=== PATIENT | female | born 1940 | race Caucasian/White ===

== ENCOUNTER → 2016-10-29 | Outpatient (CLI) | payer BC ==
--- NOTE | 2016-10-29 10:47 | DIAGNOSTIC IMAGING REPORT ---
MRI LEFT KNEE NO CONTRAST CLINICAL HISTORY: LEFT KNEE PAIN COMPARISON STUDY: January 2007 FINDINGS: Imaging was performed in sagittal, coronal, and axial planes. There is marrow edema involving the medial tibial plateau likely on a degenerative basis. The quadriceps and patellar tendons appear intact. The anterior posterior cruciate ligaments appear intact. The medial and lateral collateral ligaments appear intact. The patellar retinacular structures appear intact. There is marked chondrosis involving the medial joint compartment. There is medial extrusion of the medial meniscus. There are medial joint compartment osteophytes. There is fraying involving the undersurface of the medial meniscus. No tears of the lateral meniscus are visualized. There are degenerative changes within the patellofemoral joint. IMPRESSION: 1. Marked degenerative changes involving the medial joint compartment with chondrosis, degenerative marrow edema involving the medial tibial plateau, medial extrusion of the medial meniscus with undersurface fraying. 2. No evidence of cruciate or collateral ligament disruption. Electronically signed by: Bolivar Malone M.D. 10/29/2016 10:46 AM Dictated Date/Time: 10/29/2016 10:40 AM
== END | disposition home or self-care (01) ==
LOC: C.MRIBC 08:53
PROVIDERS: ATTEND Internal Medicine Geriatric Medicine
DX: M25.562 Pain in left knee (principal)

== ENCOUNTER → 2017-02-08 | Outpatient (CLI) | payer BC ==
--- NOTE | 2017-02-15 06:46 | CODING QUERY MEDICAL NECESSITY ---
SUPPORTING DIAGNOSIS NEEDED Dr. Gore, A supporting diagnosis is required for the test/procedure performed on this patient in order for us to be reimbursed by the patient's insurance. Please provide a supporting diagnosis for the following test/procedure listed below next to the test name along with your signature. *If there is no additional diagnosis for this patient that would support the following test/procedure please document that below next to the test/procedure. Test(s)/Procedure(s) that require a supporting diagnosis: * ([id number]) DXA BONE DENSITY, AXIAL DIAGNOSIS: DATE OF SERVICE: 02/08/17 Provider Signature: Date: Thank you Kenneth Jo [facility] Information Management Once completed, please kindly fax back to [phone] For questions please call [phone]
== END | disposition home or self-care (01) ==
LOC: C.MAMM 10:38
PROVIDERS: ATTEND Internal Medicine Geriatric Medicine
DX: Z00.00 Encounter for general adult medical examination without abnormal findings (principal); M40.03 Postural kyphosis, cervicothoracic region

== ENCOUNTER → 2017-04-04 | Outpatient (CLI) | payer BC ==
--- NOTE | 2017-04-04 16:07 | MAMMOGRAPHY REPORT ---
BILATERAL DIGITAL SCREENING MAMMOGRAM WITH CAD: 04/04/2017 CLINICAL HISTORY: Routine screening. Patient has no complaints. TECHNIQUE: Bilateral CC and MLO views were obtained. Current study was also evaluated with a Compute r Aided Detection (CAD) system. COMPARISON: Comparison is made to exams dated: 03/31/2016 mammogram, 03/28/2015 mammogram, 03/27/2014 mamm ogram, 03/26/2013 mammogram, 03/23/2012 mammogram, and 03/23/2011 mammogram - [facility] BREAST COMPOSITION: There are scattered areas of fibroglandular density in both breasts. FINDINGS: There is fluctuating nodularity bilaterally, most likely representing fluctuating cysts. T here are mild vascular calcifications and scattered benign-appearing microcalcifications in the breas ts. No suspicious spiculated or irregular mass, architectural distortion or cluster of new, suspicio us microcalcifications is seen. IMPRESSION: ACR BI-RADS CATEGORY 1: NEGATIVE There is no mammographic evidence of malignancy. A 1 year screening mammogram is recommended. The pa tient will receive written notification of the results. Approximately 10% of breast cancers are not detected with mammography. A negative mammographic report should not delay biopsy if a clinically suggestive mass is present. Kaye Michelle M.D. ay/:04/04/2017 14:51:38 Nursing Informatics Specialist: Veronica PATTON(Hugh)(M), [facility] letter sent: Normal 1/2 BI-RADS Code: ACR BI-RADS Category 1: Negative
== END | disposition home or self-care (01) ==
LOC: C.MAMM 11:35
PROVIDERS: ATTEND Specialist
DX: Z12.31 Encounter for screening mammogram for malignant neoplasm of breast (principal)

== ENCOUNTER → 2017-07-18 | Outpatient (CLI) | payer BC ==
[2017-07-18 12:29] LABS: BASO % 0.2 %; BASO ABS # 0.01 K/uL (0-0.2); COMPLETE YES; EOS % 2.4 %; HEMATOCRIT 42.6 % (37-47); LYMPH % 41.4 %; LYMPH ABS # 1.89 K/uL (1.2-3.4); MEAN CELL VOLUME 93.2 fL (80-100); MEAN CORPUSCULAR HEMOGLOBIN 31.1 pg (25-34); MEAN CORPUSCULAR HGB CONC 33.3 g/dl (32-36); MEAN PLATELET VOLUME 11.4 fL (7.4-10.4); MONO % 6.4 %; NEUT % 49.6 %; PLATELET COUNT 182 K/uL (130-400); RED BLOOD COUNT 4.57 M/uL (4.2-5.4); WHITE BLOOD COUNT 4.56 K/uL (4.8-10.8)
[2017-07-18 12:45] LABS: ESTIMATED AVERAGE GLUCOSE 114 mg/dl; HA1C FLAG Normal (Normal)
[2017-07-18 12:58] LABS: ALT/SGPT 21 U/L (12-78); BLOOD UREA NITROGEN 12 mg/dl (7-18); BUN/CREATININE RATIO 19.7 (10-20); CARBON DIOXIDE 28 mmol/L (21-32); CHLORIDE 102 mmol/L (98-107); CHOLESTEROL 199 mg/dl (0-200); CREATININE 0.62 mg/dl (0.60-1.20); GLUCOSE 96 mg/dl (70-99); POTASSIUM 3.8 mmol/L (3.5-5.1); SODIUM 137 mmol/L (136-145)
[2017-07-18 13:08] LABS: ALKALINE PHOSPHATASE 91 U/L (45-117); AST/SGOT 19 U/L (15-37); CHOLESTEROL/HDL RATIO 3.1; HDL CHOLESTEROL 65 mg/dl; LDL CHOLESTEROL CALCULATED 120 mg/dl; THYROID STIMULATING HORMONE 0.805 uIu/ml (0.300-4.500); TRIGLYCERIDES 68 mg/dl (0-150); VERY LOW DENSITY LIPOPROT CALC 14 mg/dl
--- NOTE | 2017-07-22 12:15 | CODING QUERY MEDICAL NECESSITY ---
SUPPORTING DIAGNOSIS NEEDED A supporting diagnosis is required for the test/procedure performed on this patient in order for us to be reimbursed by the patient's insurance. Please provide a supporting diagnosis for the following test/procedure listed below next to the test name along with your signature. *If there is no additional diagnosis for this patient that would support the following test/procedure please document that below next to the test/procedure. Test(s)/Procedure(s) that require a supporting diagnosis: * VITAMIN B12 DIAGNOSIS: * VITAMIN D, 25-HYDROXY DIAGNOSIS: Provider Signature: Date: Thank you Mariah Wheatley [employer] Information Management Once completed, please kindly fax back to [phone] For questions please call [phone]
== END | disposition home or self-care (01) ==
LOC: C.LABPBG 10:11
PROVIDERS: ATTEND Internal Medicine Geriatric Medicine
DX: G62.9 Polyneuropathy, unspecified (principal); M19.90 Unspecified osteoarthritis, unspecified site; E78.5 Hyperlipidemia, unspecified; R73.9 Hyperglycemia, unspecified; I10 Essential (primary) hypertension; K21.9 Gastro-esophageal reflux disease without esophagitis

== ENCOUNTER 2023-01-07 06:41 | Observation (INO) ==
--- NOTE | 2022-12-02 11:34 | PAT Medication Instructions ---
Medication Instructions Date of Service December 02, 2022 Home Medications acetaminophen 500 mg tablet 1,000 mg PO TID PRN fever or pain omeprazole magnesium 20 mg tablet,delayed release (Prilosec OTC) 20 mg PO DAILY PRN Acid Reflux telmisartan 20 mg tablet 10 mg PO HS Continue as directed omeprazole magnesium 20 mg tablet,delayed release (Prilosec OTC) 20 mg PO DAILY PRN Acid Reflux (if needed) Take morning of surgery With a small sip of water, OTHERWISE NOTHING TO EAT OR DRINK AFTER MIDNIGHT: acetaminophen 500 mg tablet 1,000 mg PO TID PRN fever or pain (if needed) Take evening before surgery acetaminophen 500 mg tablet 1,000 mg PO TID PRN fever or pain (if needed) telmisartan 20 mg tablet 10 mg PO HS Other Notes If you have any questions please call us at [phone] or [phone] or [phone] or [phone]
--- NOTE | 2022-12-08 11:41 | Anesthesiology Consultation ---
Date of Service December 08, 2022 Assessment & Plan (1) Encounter for pre-operative examination: - COVID screening: Per assessment on 12/08: No known COVID-19 positive contacts or current COVID-19 related symptoms. Travel screen negative. Patient vaccinated. At surgeon discretion if preop Covid testing being done. - PCP office visit (09/09/22): "HTN: Blood pressure is good today.she feels lower at home. continue telmisartan 20mg (10mg if side effects). Discussed low- salt diet. Continued routine exercise.Encouraged her to work on weight loss. She should restart home blood pressure monitoring and call with concerning readings. Dysphagia: Encouraged daily Protonix. hyperglycemia: A1c stable. osteoarthritis: she will see ortho soon.. hyperlipidemia: she declines statin. peripheral neuropathy: Unchanged. abdominal bloating/ palpitations/poor appetite, weight loss: all since prednisone. EKG today: unchanged from 07/20/2022. Consider echocardiogram if palpitations persist (Inferior Q-wave).. She should expect her symptoms to slowly improve, needs to contact us if things worsen." Patient seen at [facility] 12/08/22- patient feeling well/no palpitations or cardiopulmonary limiting complaints at visit* - Outpatient joint assessment: Pt currently scheduled for inpatient pathway. If surgeon requests review for outpatient joint pathway, patient is not recommended candidate for outpatient joint program from anesthesia standpoint pending surgeon's office assessment that patient is motivated, has good support and completes Same Day Joint Program preop requirements. - Patient concern: Pt states /mother had memory issues and she is worried about having a reaction specifically with versed. She wishes to avoid this is possible. Also, concerned with neuraxial anesthesia. Discussed neuraxial anesthesia vs. GA. Patient voiced understanding and states she will discuss further regarding anesthesia type/medications further AM DOS. Chart Review Chart Review: Acceptable Risk for Surgery (pending evaluation AM DOS) and Patient seen in Pre Admission Testing Teaching & Discussion Pre-Anesthesia Teaching/Discussion Notes: Instructed NPO after midnight before surgery,except medications with 15 cc of water. Medication instructions provided according to the [facility] guidelines. History Surgery Operation Date: 01/07/23 10:35 Proposed Procedures p Left Total Knee Arthroplasty - Ru Medina, DO Height/Weight Height: 4 ft 8.5 in Weight: 72.6 kg Allergies Allergy/AdvReac Type Severity Reaction Status Date / Time Penicillins Allergy Severe Dyspnea Verified 12/06/22 09:37 latex Allergy Mild Occasional Verified 12/06/22 09:37 palm itching (with latex gloves) loratadine Allergy Mild Itching Verified 12/06/22 09:37 amlodipine AdvReac Mild Did not Verified 12/06/22 09:37 feel well doxycycline AdvReac Mild Yeast Verified 12/06/22 09:37 infection midazolam [From Versed] AdvReac Patient Verified 12/08/22 12:19 wishes to avoid if possible Medications Home Medications Medication Instructions Recorded Confirmed Last Taken acetaminophen 500 mg tablet 1,000 mg PO TID PRN fever or pain 09/24/19 12/02/22 Unknown omeprazole magnesium 20 mg 20 mg PO DAILY PRN Acid Reflux 09/10/22 12/02/22 Unknown tablet,delayed release (Prilosec OTC) telmisartan 20 mg tablet 10 mg PO HS 09/10/22 12/02/22 Unknown Past Medical History Medical History Back pain, chronic Benign paroxysmal positional vertigo Hx Calcification of abdominal aorta Calcified plaque within normal caliber abdominal aorta per 12/2021 CT ([facility]), pt unaware Chronic reflux esophagitis Dyslipidemia Per records, pt unsure Hiatal hernia Hypertension Obesity Osteoarthritis Peripheral neuropathy Scoliosis Exercise / Class Metabolic Activity II 4-5 Yardwork/Stairs/Walk up hill (one FS (no CP, no SOB)) Past Family History Family History Sister Breast cancer Cancer Family history of diabetes mellitus Uncle Colorectal cancer Father Prostate cancer Grandmother Family history of diabetes mellitus Grandmother (Paternal) Family history of diabetes mellitus Grandmother (Maternal) Family history of diabetes mellitus Other Heart disease No significant family history Denies family history of Ovarian cancer Myocardial infarction Lung cancer Past Surgical History Surgical History (Updated 12/08/22 @ 12:15 by Jessica Rutledge) History of anesthesia reaction Slow to wake with remote D&C ([facility]), "sensitive to medications" per patient Per patient, with anesthesia induction for previous EGD/colonoscopy she felt like she was getting "hit in the head"/didn't feel well. No similar issues with other surgeries/anesthesia. History of cataract surgery R/L History of colonoscopy History of D&C History of esophagogastroduodenoscopy (EGD) HX DILATION, MULTIPLE Past Anesthesia History No Family Hx of Anesthesia Complications and Other Slow to wake with remote D&C ([facility]), "sensitive to medications" per patient Per patient, with anesthesia induction for previous EGD/colonoscopy she felt like she was getting "hit in the head"/didn't feel well. No similar issues with other surgeries/anesthesia. History of PONV No Hx of PONV and No Hx of Motion Sickness Social History Smoking Status: Never smoker Do You Dip or Chew Tobacco: No Hx Alcohol Use: No Hx Substance Use: No substance use type: does not use Review of Systems Patient denies chest pain, shortness of breath, dyspnea on exertion, fever, chills, cough, wheezing, palpitations. Physical Exam Vital Signs VITALS BP 129/70 P 87 TEMP 98.4 SP02 95%RA RESP 16 PHYSICAL Full cervical extension range of motion. Full TMJ range of motion. TMD 4 finger breaths Mallampati Score 1 Dentition: intact, several crowns (sides/molars), + bridge (lower left side) Lungs: clear throughout to auscultation Cardiac: regular rate and rhythm, no murmurs noted Spine: normal Carotid arteries: negative bruit Extremities: no edema Lab Results Anesthesia Preop Results Results Anesthesia Widget: WBC 7.21 K/ul (4.8-10.8) 12/08/22 Hgb 13.9 g/dl (12.0-16.0) 12/08/22 Hct 41.4 % (37.0-47.0) 12/08/22 Plt 178 K/uL (130-400) 12/08/22 Na 137 mmol/L (136-145) 12/08/22 K 3.9 mmol/L (3.5-5.1) 12/08/22 Cl 103 mmol/L (98-107) 12/08/22 CO2 27 mmol/L (21-32) 12/08/22 BUN 12 mg/dl (6-23) 12/08/22 Creat 0.63 mg/dl (0.6-1.2) 12/08/22 Glucose Level 88 mg/dl (70-99(Fasting)) 12/08/22 PT 10.8 Seconds (9.0-12.0) 12/08/22 PTT 25.6 Seconds (21.0-31.0) 12/08/22 INR 1.0 (0.9-1.1) 12/08/22 Blood Type O Positive 12/08/22 Antibody Screen NEGATIVE 12/08/22 Testing Electrocardiogram Date: 09/10/22 SR at 72bpm. Inferior UT, probably old "Unchanged" per confirming provider* Chest X-Ray Date: 08/31/22 FINDINGS: Cardiac mediastinal and hilar silhouettes are unchanged. Small hiatal hernia. No pneumothorax, pleural effusion, airspace consolidation or overt pulmonary edema. Left subscapularis recess loose body. IMPRESSION: No acute process. COVID-19 Risk Screen Screening Information COVID-19 Screen Date: 12/08/22 Exposure 21 Days Family/Household +COVID Last 21 Days: No Exposure 10 Days Any COVID Exposure Last 10 Days: No Symptoms Last 10 Days Experienced COVID Sx Last 10 Days: No + COVID 0-90 Days COVID + in Last 0-90 Days: No
[~2023-01-07 06:41] MED LIST: ACETAMINOPHEN 500 MG TAB PO SCH; ALLERGY Noted to ORDERED Medication SCH; BUPIVACAINE 0.5 % 5 MG/1 ML PF 10ML VIAL ONE; EPINEPHrine INJ 1 MG/ML AMP ONE; FAMOTIDINE 20 MG TAB PO SCH; GABAPENTIN 300 MG CAP PO SCH; LR 15ML/HR IV SCH; ORTHO JOINT MIX INFIL SCH; ROPIVACAINE 0.5% 5 MG/ML 30 ML VIAL ONE; TRANEXAMIC ACID 1,000 MG **IV Intra-op IV SCH; TRANEXAMIC ACID 1,000 MG **IV Pre-op IV SCH; ceFAZolin 2000MG 2,000 MG/15 ML SYR IV SCH; dexAMETHasone 4 MG TAB PO SCH
[2023-01-07] MEDS ORDERED: PROPOFOL IV EMULSION 10 MG/ML 20 ML VIAL IV ONE ×3 (08:17)
[2023-01-07] MEDS ORDERED: fentaNYL citrate PF 100 MCG/2 ML VIAL ONE (08:17)
--- NOTE | 2023-01-07 08:22 | History & Physical Bridge Note ---
Date of Service January 07, 2023 History & Physical Bridge Note I have examined the patient, reviewed the History & Physical and in the interval since the performance of the History & Physical I have noted the following changes of clinical significance: no changes noted
[2023-01-07] MEDS ORDERED: ceFAZolin 2,000 MG/15 ML IV PUSH IV ONE (08:48)
[2023-01-07] MEDS ORDERED: Nursing to Pharmacy Communication SCH (09:00)
[2023-01-07] MEDS ORDERED: ORTHO JOINT ANESTHETIC ONE (09:00)
[2023-01-07] MEDS ORDERED: MIDAZOLAM HCL 1 MG/ML 2ML VIAL ONE (09:01)
[2023-01-07] MEDS ORDERED: ONDANSETRON INJ 2 MG/ML 2 ML VIAL IV PRN ×2 (10:05→12:41)
[2023-01-07] MEDS ORDERED: ATROPINE SULFATE 0.1 MG/ML 10ML SYR IV PRN (10:05)
[2023-01-07] MEDS ORDERED: ePHEDrine sulfate 50 MG/ML AMP IV PRN (10:05)
[2023-01-07] MEDS ORDERED: fentaNYL citrate PF 100 MCG/2 ML VIAL IV PRN (10:05)
--- NOTE | 2023-01-07 10:36 | Operative Report ---
PG Post Operative Report Pre & Post Diagnosis Operation Date: 01/07/23 09:20 Pre-Op Diagnosis: Degenerative Joint Disease Left Knee Post-Op Diagnosis: Degenerative Joint Disease Left Knee I identified the patient and participated in the time-out.: Yes Procedure Operation Date: 01/07/23 09:20 Actual Procedures p Left Total Knee Arthroplasty(Left) - Ru Medina DO Surgeon Ru Medina DO General Utility Maintenance Repairer Usama Azul PA-C Estimated Blood Loss 30 Findings Consistent with Post-Op Diagnosis Specimens Left femoral tibial bone Description of Procedure Implants used: I used a Greg Persona total knee arthroplasty system with a size 7 narrow femur, D tibia, 28 oval patella, and a size 12 medial congruent polyethylene bearing. All components were cemented in place with Biomet cement. Jacqui arrived [facility] for the above procedure. She was seen in the preoperative holding area and the operative extremity was identified and signed. She was given a preoperative antibiotic, TXA, a spinal anesthetic and an adductor nerve block. She was taken back to the operating room and laid on the table in supine position. She was given basic sedation. The operative knee was then prepped and draped in sterile fashion. A timeout was done, and the patient and the operative extremity was properly identified. A midline incision was made directly over the patella. Dissection was taken down to the extensor mechanism. A midvastus arthrotomy was used. The medial retinaculum was released and the fat pad was mostly excised. The knee was flexed and the ACL, PCL, and meniscus were removed. A drill was sent down the center of the femoral canal followed by an intramedullary cinthia. Off that cinthia a distal femoral cutting block was placed. 9 mm was resected off the distal femur at 5 of valgus. A posterior referencing AP sizing guide was then placed on the distal femur. The femur measured to be a size 7. 2 drill holes were placed in 3 of external rotation. A 4-in-1 cutting block was then impacted into place. Anterior, posterior, and chamfer cuts were then made. The proximal tibia was then exposed. An external tibial alignment guide was placed. A tibial cut guide was then anchored in place and the proximal tibia was then resected. The posterior aspect of the knee was then opened up and any additional meniscus fragments and osteophytes were removed. The tibia measured to be a size D. The tibial plate was then placed in the appropriate rotation and the tibia was drilled and punched. Trial components were then placed. I used a size 12 medial congruent polyethylene insert. The knee was brought through a full range of motion and felt to be stable. The peg holes for the femoral component were then drilled. The patella was then everted and 9 mm was resected off the posterior aspect of the patella. The patella measured to be a size 28 oval. 3 peg holes were then drilled. A trial patella was placed. The knee was once again brought through a full range of motion and felt to be stable. Trial components were then removed. The surrounding soft tissues were injected with 100 cc of an orthopedic pain control cocktail. All components were then cemented into place with Biomet cement. The final polyethylene insert was then snapped into place. Once cement was dry the tourniquet was deflated. Hemostasis was obtained. A dilute betadyne lavage was then done for 3 minutes. The joint was then irrigated with normal saline solution. The midvastus arthrotomy was then closed with #1 Vicryl suture. The skin was closed with 2-0 Vicryl, 3-0V lock suture, and jeo. A soft compressive dressing was placed. She was then transferred to a hospital bed and taken to the postanesthesia care unit in stable condition. She tolerated the procedure well. Ru Giraldo PA-C, was present for the entire procedure. He was critical for patient positioning, prepping, draping, retraction exposure, wound closure and application of sterile dressing. I attest to the content of the Intraoperative Record and any orders documented therein. Any exceptions are noted below.
--- NOTE | 2023-01-07 12:24 | XRay Report ---
TWO VIEWS LEFT KNEE CLINICAL HISTORY: Postoperative examination. FINDINGS: AP and crosstable lateral portable views of the left knee are obtained. A left knee arthrop lasty is in near anatomic alignment. There has been undersurface remodeling of the patella. No acute fracture is seen. There are expected postoperative changes around the knee including skin clips, soft tissue edema, and subcutaneous gas. IMPRESSION: Expected postoperative changes status post left knee arthroplasty. No acute fracture is s een. ACT 112: Negative or not required by law. Electronically signed by: Ezekiel Nevarez M.D. 01/07/2023 12:23 PM
[2023-01-07] MEDS ORDERED: NALOXONE HCL 0.4 MG/1 ML VIAL/CARP IV PRN (12:41)
[2023-01-07] MEDS ORDERED: oxyCODONE HCL IR 5 MG TAB (IMMEDIATE RELEASE) PO PRN (12:41)
[2023-01-07] MEDS ORDERED: METOCLOPRAMIDE HCL INJ 5 MG/ML 2 ML VIAL IV PRN (12:41)
[2023-01-07] MEDS ORDERED: bisacodyL 10 MG SUPP PR PRN (12:41)
[2023-01-07] MEDS ORDERED: MAGNESIUM HYDROXIDE SUSP 30 ML UDC PO PRN (12:41)
[2023-01-07] MEDS ORDERED: PANTOprazole 40 MG TAB PO PRN (13:14)
--- NOTE | 2023-01-07 13:31 | Anesthesiology Progress Note ---
Date of Service January 07, 2023 Anesthesia Post Procedure Vital Signs Vital Signs: Temp Pulse Pulse Resp BP Pulse Ox O2 Del Method 01/07/23 13:11 36.3 C L 87 18 121/67 98 Room Air 01/07/23 12:42 36.4 C L 80 18 127/76 98 Room Air 01/07/23 11:35 76 21 97/71 L 96 Room Air 01/07/23 12:25 84 19 116/65 97 Room Air 01/07/23 12:15 36.5 C 84 17 124/61 95 Room Air 01/07/23 12:05 80 12 117/60 96 Room Air 01/07/23 11:55 89 22 96/69 L 95 Room Air 01/07/23 11:45 74 14 115/59 L 95 Room Air 01/07/23 11:25 77 22 112/66 96 Room Air 01/07/23 11:15 73 14 112/55 L 93 Room Air 01/07/23 11:06 36.1 C L 74 16 107/54 L 98 Oxymask 01/07/23 07:33 36.8 C 82 20 151/73 H 96 Room Air O2 Flow Rate 01/07/23 13:11 01/07/23 12:42 01/07/23 11:35 01/07/23 12:25 01/07/23 12:15 01/07/23 12:05 01/07/23 11:55 01/07/23 11:45 01/07/23 11:25 01/07/23 11:15 01/07/23 11:06 5 01/07/23 07:33 Transfer of Care Handoff Completed per policy Notes Mental Status: alert / awake / arousable and participated in evaluation Patient Amnestic to Procedure: Yes Nausea / Vomiting: adequately controlled Pain: adequately controlled Airway Patency, RR, SpO2: stable & adequate BP & HR: stable & adequate Hydration State: stable & adequate Neuraxial Anesthesia: was administered and sensory block is resolving Anesthetic Complications: no major complications apparent and Pt Satisfied with anesthetic care
[2023-01-07] MEDS: SODIUM CHLORIDE 0.9% 1000ML 1,000 ML IV SCH ×2 (13:54→23:26)
[2023-01-07] MEDS: KETOROLAC TROMETHAMINE 15 MG/ML VIAL IV SCH ×2 (14:05→20:00)
[2023-01-07] MEDS: ceFAZolin 2000MG 2,000 MG/15 ML SYR IV SCH (17:54)
[2023-01-07] MEDS: DOCUSATE SODIUM 100 MG CAP PO SCH (19:46)
[2023-01-07] MEDS: ASPIRIN 81 MG ECTAB PO SCH (19:46)
[2023-01-07] MEDS ORDERED: LOSARTAN POTASSIUM 25 MG TAB PO SCH (21:00)
[2023-01-07] MEDS ORDERED: SENNA 8.6 MG TAB PO SCH (21:00)
[2023-01-08] MEDS: KETOROLAC TROMETHAMINE 15 MG/ML VIAL IV SCH ×2 (01:36→08:31)
[2023-01-08] MEDS: ceFAZolin 2000MG 2,000 MG/15 ML SYR IV SCH (01:36)
--- NOTE | 2023-01-08 07:40 | Orthopedic Progress Note ---
Date of Service January 08, 2023 Rocio Osman was seen and examined at bedside this morning. Overall she is doing fairly well. She is not having too much pain in the left knee. She is on aspirin for DVT prophylaxis. She will be seen by physical therapy today for ambulation and range of motion exercises. She can be discharged home later today. She will follow-up with orthopedics in 2 weeks.. Review of Systems All systems reviewed & are unremarkable except as noted in HPI & below. Physical Exam . Results & Data Results & Data Laboratory Results . Diagnostic Findings . PG Care Time/CCT Total # of Minutes Spent Total Time Spent with Patient: Total time spent is greater than 50% in coordination of care (as documented) at patient's floor/unit and/or counseling patient: Coding Level of Care Code 33741 Post Operative Follow-Up Diagnoses
--- NOTE | 2023-01-08 07:41 | Discharge Summary ---
Date of Service January 08, 2023 Principal Diagnosis Same as "Discharge Diagnosis" noted below under Discharge Instructions. Discharge Exam . Discharge Data Procedures Performed Operation Date: 01/07/23 09:20 Actual Procedures p Left Total Knee Arthroplasty(Left) - Ru Medina DO Ordered Studies 01/07/23 05:00 US - OR guided needle placemen Routine Hospital Course (1) Status post left knee replacement: On January 07, 2023 Jacqui arrived at [facility] and underwent a left knee replacement without complication. She had a spinal anesthetic. Postoperatively she was started on aspirin for DVT prophylaxis and transferred to the general orthopedic floors. Her hospital course was uneventful. On postop day #1, her vital signs were stable and her pain was well controlled. She was able to participate well with physical therapy doing ambulation and range of motion exercises. She was then discharged home. She will follow-up with orthopedics in 2 weeks. PG Care Time/CCT Total # of Minutes Spent Total Time Spent with Patient: Total time spent is greater than 50% in coordination of care (as documented) at patient's floor/unit and/or counseling patient: Discharge Plan Discharge Items Patient Disposition: Home - Home Health Services Reason For Visit: POST OP Discharge Diagnosis: Left knee replacement Activity: As commented below Non-emergency contact: Surgeon Call non-emergency contact if: your wound has increased redness and your wound has increased drainage Follow-up/Referrals: Edelmira Hunt MD [Primary Care Provider] - Diet: Regular Addtl Attending Provider Instructions: Activity and Therapy Recommendations: * If you are using [facility] then therapy will be provided at your home until they feel you have accomplished all of your goals. * If you are using [facility] then Physical Therapy will be provided until they feel you are ready to start Outpatient Physical Therapy. * If you are not using home therapy then Outpatient Physical Therapy should start about 3-5 days from your day of surgery. Therapy will last about 6-10 weeks * It is important not to put a pillow under your knee when you are relaxing or sleeping. It is just as important to make sure you are getting your knee perfectly straight as it is to regain your knee bend. * You were shown a series of exercises in the hospital. Do these exercises three times each day including the exercises you were shown in physical therapy. * Get up and walk several times each day. For the first four weeks, try not to stand or walk for more than one hour at a time. If you do stand or walk for more than one hour, you will not hurt anything, but your leg will likely swell. * As you feel comfortable, you may change from the walker or crutches to a cane and then to independent walking. Medications: * Narcotic You will likely be sent home from the hospital with a prescription for the narcotic pain medication that worked best throughout your stay. * Aspirin Most patients will be required to take Aspirin 81mg twice a day for 6 weeks after surgery. This is obtained [id number] and a prescription is not necessary. * Other medications may be prescribed for specific circumstances. If you have any questions, please call the office at . * Resume previous home medications unless otherwise instructed TEDs/Elastic Stockings: The white elastic stockings help limit swelling and prevent blood clots from forming in your legs.~ The more you wear them, the more they work. Wear them for six weeks. Dressing Care: The dressing can be changed after physical therapy on postop day #1. Daily dry dressing changes for a few days, especially if the incision is still draining some. If the incision is not draining then you may leave the joe open to air. If there is a little bit of drainage or if the joe are getting stuck on your clothing then cover the incision with a dry dressing. The joe will be removed at your 2 week follow-up appointment. Showering: You may shower 5 days from the day of surgery as long as the incision is no longer draining. You may shower with the joe exposed. Let soapy water run over the joe and pat them dry. Do not scrub or soak the incision. Things To Watch For: * Drainage from the incision site that occurs more than one week after your surgery. * Increased redness at the incision site. * Fever above 102 degrees Fahrenheit. * Unusual chest pain or shortness of breath. * Call [facility] at with any of the above problems Follow-Up Visit: Follow-up with Dr. Medina's PA (Ru Giraldo) 2-3 weeks after your day of surgery. He will remove your joe and answer any questions. If you have any additional questions or concerns, Dr Medina is usually in the office at the same time and will be available An appointment was probably scheduled when you signed-up for surgery in the office. If you have any questions call Office Instructions: More detailed instructions as well as Frequently Asked Questions were provided in a folder by our office when you signed-up for surgery. Please review these instructions when you get home. If you have any further questions or concerns, please feel free to call the office at [phone] Pending Studies at Discharge: No Stand-Alone Forms: My [facility] [employer], Smoking Cessation Medications and DC Order Prescriptions: New aspirin 81 mg Tablet,Delayed Release (Dr/Ec) 81 mg PO BID 42 Days Qty: 84 0RF tramadol 50 mg tablet 50 mg PO Q6H PRN (Reason: pain) Qty: 30 0RF Continued telmisartan 20 mg tablet 10 mg PO HS Qty: 45 3RF omeprazole magnesium [Prilosec OTC] 20 mg tablet,delayed release (DR/EC) 20 mg PO DAILY PRN (Reason: Acid Reflux) Admission Data Admit Date/Time: 01/07/23 11:08 Attending Provider: Ru Medina Admit Provider: Ru Medina Primary Care Provider: Edelmira Hunt
--- NOTE | 2023-01-08 07:48 | Orthopedic Progress Note ---
Date of Service January 08, 2023 Assessment & Plan (1) Status post left knee replacement: Overall she is doing well. She is not having much pain in the left knee. She will be seen by physical therapy today for ambulation and range of motion exercises. She is on aspirin for DVT prophylaxis. She can be discharged home later today. She will follow-up with orthopedics in 2 weeks. Rocio Osman was seen and examined at bedside this morning. Overall she is doing fairly well. She is not having too much pain in the left knee. She has been up and ambulating to the bathroom. She has no complaints.. Review of Systems All systems reviewed & are unremarkable except as noted in HPI & below. Physical Exam On physical examination of the left knee, the dressing is clean and dry. Her leg is out full extension. She has active dorsiflexion plantarflexion of her left ankle.. Results & Data Results & Data Laboratory Results . Diagnostic Findings Postoperative x-rays of the left knee show the prosthesis to be in anatomic alignment without any evidence of fracture, desiccation, or loosening. PG Care Time/CCT Total # of Minutes Spent Total Time Spent with Patient: Total time spent is greater than 50% in coordination of care (as documented) at patient's floor/unit and/or counseling patient: Coding Level of Care Code 49140 Post Operative Follow-Up Diagnoses Status post left knee replacement Z96.652
[2023-01-08] MEDS ORDERED: dexAMETHasone 4 MG TAB PO SCH (08:00)
[2023-01-08] MEDS: ASPIRIN 81 MG ECTAB PO SCH (08:31)
[2023-01-08] MEDS: DOCUSATE SODIUM 100 MG CAP PO SCH (08:31)
[2023-01-08] MEDS ORDERED: MULTIVITAMIN TAB PO SCH (09:00)
== END 2023-01-08 11:54 | disposition home or self-care (01) ==
LOC: ASU 06:41 → 3E 06:41
DX: Z88.1 Allergy status to other antibiotic agents; Z20.822 Contact with and (suspected) exposure to COVID-19; G62.9 Polyneuropathy, unspecified; Z79.899 Other long term (current) drug therapy; M17.12 Unilateral primary osteoarthritis, left knee; Z91.040 Latex allergy status; Z88.0 Allergy status to penicillin

== ENCOUNTER 2023-06-10 07:20 | Observation (INO) ==
--- NOTE | 2023-05-12 13:27 | PAT Medication Instructions ---
Medication Instructions Date of Service May 12, 2023 Home Medications Medication Instructions Recorded telmisartan 20 mg tablet 10 mg PO HS #45 tabs 01/04/23 omeprazole magnesium 20 mg 20 mg PO DAILY PRN Acid Reflux #90 02/04/23 tablet,delayed release (Prilosec tabs OTC) telmisartan 20 mg tablet 10 mg PO HS omeprazole magnesium 20 mg tablet,delayed release (Prilosec OTC) 20 mg PO DAILY PRN Continue as directed omeprazole magnesium 20 mg tablet,delayed release (Prilosec OTC) 20 mg PO DAILY PRN(if needed) Take evening before surgery telmisartan 20 mg tablet 10 mg PO HS Other Notes NOTHING TO EAT OR DRINK AFTER MIDNIGHT. If you have any questions please call us at [phone] or [phone] or [phone] or [phone]
--- NOTE | 2023-05-18 11:56 | Anesthesiology Consultation ---
Date of Service May 18, 2023 Assessment & Plan (1) Encounter for pre-operative examination: Chart Review Chart Review: Acceptable Risk for Surgery and Patient seen in Pre Admission Testing Patient is hesitant with use of Versed- did have small amount of Versed with left TKA 12/2022. Tolerated well - Due to age and comorbidities- patient is NOT an acceptable OPJ candidate Per PAT appt on 05/18/23, no recent Covid exposures, Covid related symptoms, or recent Covid positive tests. Will leave to surgeon's discretion if preop Covid testing needed Left TKA 01/07/23= Done under SAB at L4-5 and then L3-4 with three attempts. Teaching & Discussion Pre-Anesthesia Teaching/Discussion Notes: Instructed NPO after midnight before surgery,except medications with 15 cc of water. Medication instructions provided according to the PAT guidelines. History Surgery Operation Date: 06/10/23 10:30 Proposed Procedures p Right Total Knee Arthroplasty - Ru Medina DO Height/Weight Height: 4 ft 9 in Weight: 71.3 kg Allergies Allergy/AdvReac Type Severity Reaction Status Date / Time Penicillins Allergy Severe Dyspnea Verified 05/10/23 10:44 latex Allergy Mild Occasional Verified 05/10/23 10:44 palm itching (with latex gloves) loratadine Allergy Mild Itching Verified 05/10/23 10:44 amlodipine AdvReac Mild Did not Verified 05/10/23 10:44 feel well doxycycline AdvReac Mild Yeast Verified 05/10/23 10:44 infection midazolam [From Versed] AdvReac Unknown Patient Verified 05/10/23 10:45 wishes to avoid if possible Medications Home Medications Medication Instructions Recorded Confirmed Last Taken telmisartan 20 mg tablet 10 mg PO HS #45 tabs 01/04/23 05/10/23 01/06/23 18:30 omeprazole magnesium 20 mg 20 mg PO DAILY PRN Acid Reflux #90 02/04/23 05/10/23 Unknown tablet,delayed release (Prilosec tabs OTC) Past Medical History Medical History (Updated 05/18/23 @ 15:13 by Audra Win PA-C) Back pain, chronic Minimal pain currently Benign paroxysmal positional vertigo No issues x years Calcification of abdominal aorta Calcified plaque within normal caliber abdominal aorta per 12/2021 CT ([facility]) GERD with esophagitis Stable and controlled - takes Omeprazole if needed Hiatal hernia Hyperlipidemia Borderline - diet controlled Hypertension Obesity Peripheral neuropathy Noted to feet Prediabetes Diet controlled Scoliosis Exercise / Class Metabolic Activity II 4-5 Yardwork/Stairs/Walk up hill (one flight of stairs- no chest pain or SOB- uses cane PRN for extra support ) Past Family History Family History Sister Breast cancer Cancer Family history of diabetes mellitus Uncle Colorectal cancer Father Prostate cancer Grandmother Family history of diabetes mellitus Grandmother (Paternal) Family history of diabetes mellitus Grandmother (Maternal) Family history of diabetes mellitus Other Heart disease No significant family history Denies family history of Ovarian cancer Myocardial infarction Lung cancer Past Surgical History Surgical History History of anesthesia reaction Slow to wake with remote D&C ([facility]), "sensitive to medications" per patient Per patient, with anesthesia induction for previous EGD/colonoscopy she felt like she was getting "hit in the head"/didn't feel well. No similar issues with other surgeries/anesthesia. History of cataract surgery R/L History of colonoscopy History of D&C History of esophagogastroduodenoscopy (EGD) HX DILATION, MULTIPLE Status post left knee replacement (~12/2022) 01/07/2023-Dr. Medina Past Anesthesia History No Hx of Anesthesia Complications (with exception to remote hx of slow to wake with D&C, sensitivity to medications, remote hx with colonoscopy/EGD- did not feel well- no issues with subsequent endoscopies ) and No Family Hx of Anesthesia Complications (with exception to mother - "sensitive to medications") History of PONV No Hx of PONV and No Hx of Motion Sickness Social History Smoking Status: Never smoker Do You Dip or Chew Tobacco: No Hx Alcohol Use: No Hx Substance Use: No substance use type: does not use Review of Systems Patient denies chest pain, shortness of breath, dyspnea on exertion, cough, wheezing, palpitations. No hx of seizures, stroke, [place], apnea/snoring. No hx of blood clots or blood transfusions Physical Exam Vital Signs VITALS BP 130/70 P 69 TEMP 97.9 SP02 97% RESP 16 Constitutional no acute distress ENMT Mouth: no TMJ clicking Thyromental Distance: > or= 3.5 Finger Breadths (3.5) Mallampati Class: II Missing molars and side teeth Permanent bridge left side Crowns to top side teeth Neck + limited neck extension (mild) Respiratory normal respiratory effort; no respiratory distress Auscultation: lungs clear to auscultation bilaterally; no wheezes Cardiovascular Rate/Rhythm: regular rate and regular rhythm Heart Sounds: no murmur Vessels: no carotid bruit Musculoskeletal Spine: no pain with cervical ROM Extremities: extremities normal to inspection Psychiatric Orientation: alert Lab Results Anesthesia Preop Results Results Anesthesia Widget: WBC 5.86 K/ul (4.8-10.8) 05/18/23 Hgb 13.4 g/dl (12.0-16.0) 05/18/23 Hct 39.7 % (37.0-47.0) 05/18/23 Plt 177 K/uL (130-400) 05/18/23 Na 136 mmol/L (136-145) 05/18/23 K 4.4 mmol/L (3.5-5.1) 05/18/23 Cl 102 mmol/L (98-107) 05/18/23 CO2 28 mmol/L (21-32) 05/18/23 BUN 12 mg/dl (6-23) 05/18/23 Creat 0.59 mg/dl (0.6-1.2) L 05/18/23 Glucose Level 92 mg/dl (70-99(Fasting)) 05/18/23 PT 10.9 Seconds (9.0-12.0) 05/18/23 PTT 26.6 Seconds (21.0-31.0) 05/18/23 INR 1.0 (0.9-1.1) 05/18/23 HA1c 5.6 % (4.5-5.6) 05/18/23 Blood Type O Positive 05/18/23 Antibody Screen NEGATIVE 05/18/23 Testing Electrocardiogram Date: 05/18/23 Findings: + NSR @ (67bpm ) Normal EKG per cardio Chest X-Ray Date: 08/31/22 Findings: + NAD FINDINGS: Cardiac mediastinal and hilar silhouettes are unchanged. Small hiatal hernia. No pneumothorax, pleural effusion, airspace consolidation or overt pulmonary edema. Left subscapularis recess loose body.
[~2023-06-10 07:20] MED LIST changes: +BUPIVACAINE 0.25% PF 30 ML VIAL ONE; -EPINEPHrine INJ 1 MG/ML AMP ONE; -LR 15ML/HR IV SCH; +LR 500ML BOLUS, THEN 15ML/HR IV SCH; +LR 60ML/HR IV SCH
[2023-06-10] MEDS ORDERED: LIDOCAINE 2% 2 ML VIAL/AMP(20MG/ML) INFIL ONE (07:55)
[2023-06-10] MEDS ORDERED: PROPOFOL IV EMULSION 10 MG/ML 20 ML VIAL IV ONE (07:55)
[2023-06-10] MEDS ORDERED: fentaNYL citrate PF 100 MCG/2 ML VIAL ONE (07:56)
--- NOTE | 2023-06-10 08:19 | History & Physical Bridge Note ---
Date of Service June 10, 2023 History & Physical Bridge Note I have examined the patient, reviewed the History & Physical and in the interval since the performance of the History & Physical I have noted the following changes of clinical significance: no changes noted
[2023-06-10] MEDS ORDERED: Nursing to Pharmacy Communication SCH (08:45)
[2023-06-10] MEDS ORDERED: ATROPINE SULFATE 0.1 MG/ML 10ML SYR IV PRN (08:53)
[2023-06-10] MEDS ORDERED: ePHEDrine sulfate 50 MG/ML AMP IV PRN (08:53)
[2023-06-10] MEDS ORDERED: fentaNYL citrate PF 100 MCG/2 ML VIAL IV PRN (08:53)
[2023-06-10] MEDS ORDERED: ONDANSETRON INJ 2 MG/ML 2 ML VIAL IV PRN ×2 (08:53→12:52)
[2023-06-10] MEDS ORDERED: ORTHO JOINT ANESTHETIC ONE (09:19)
--- NOTE | 2023-06-10 10:33 | Operative Report ---
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 All components were cemented in place with Biomet cement. Jacqui arrived [facility] for the above procedure. She was seen in the preoperative holding area and the operative extremity was identified and signed. She was given a preoperative antibiotic, TXA, a spinal anesthetic and an adductor nerve block. She was taken back to the operating room and laid on the table in supine position. She was given basic sedation. The operative knee was then prepped and draped in sterile fashion. A timeout was done, and the patient and the operative extremity was properly identified. A midline incision was made directly over the patella. Dissection was taken down to the extensor mechanism. A midvastus arthrotomy was used. The medial retinaculum was released and the fat pad was mostly excised. The knee was flex ed and the ACL, PCL, and meniscus were removed. A drill was sent down the center of the femoral canal followed by an intramedullary cinthia. Off that cinthia a distal femoral cutting block was placed. 9 mm was resected off the distal femur at 5 of valgus. A posterior referencing AP sizing guide was then placed on the distal femur. The femur measured to be a size 7. 2 drill holes were placed in 3 of external rotation. A 4-in-1 cutting block was then impacted into place. Anterior, posterior, and chamfer cuts were then made. The proximal tibia was then exposed. An external tibial alignment g uide was placed. A tibial cut guide was then anchored in place and the proximal tibia was then resected. The posterior aspect of the knee was then opened up and any additional meniscus fragments and osteophytes were removed. The tibia measured to be a size D. The tibial plate was then placed in the appropriate rotation and the tibia was drilled and punched. Trial components were then placed. I used a size 12 medial congruent polyethylene insert. The knee was brought through a full range of motion and felt to be stable. The peg holes for the femoral component were then drilled. The patella was then everted and 9 mm was resected off the posterior aspect of the patella. The patella measured to be a size 28 oval. 3 peg holes were then drilled. A trial patella was placed. The knee was once again brought through a full range of motion and felt to be stable. Trial components were then removed. The surrounding soft tissues were injected with 100 cc of an orthopedic pain control cocktail. All components were then cemented into place with Biomet cement. The final polyethylene insert was then snapped into place. Once cement was dry the tourniquet was deflated. Hemostasis was obtained. A dilute betadyne lavage was then done for 3 minutes. The joint was then irrigated with normal saline solution. The midvastus arthrotomy was then closed with #1 Vicryl suture. The skin was closed with 2-0 Vicryl, 3-0V lock suture, and joe. A soft compressive dressing was placed. She was then transferred to a hospital bed and taken to the postanesthesia care unit in stable condition. She tolerated the procedure well. Ru Giraldo PA-C, was present for the entire procedure. He was critical for patient positioning, prepping, draping, retraction exposure, wound closure and application of sterile dressing. I attest to the content of the Intraoperative Record and any orders documented therein. Any exceptions are noted below.
[2023-06-10] MEDS ORDERED: ePHEDrine sulfate 50 MG/5 ML SYR ONE (10:43)
--- NOTE | 2023-06-10 11:37 | XRay Report ---
XR knee RT 1 or 2V routine CLINICAL HISTORY: Postoperative evaluation. COMPARISON: Right knee MRI April 24, 2007. Right knee radiographs February 23, 2023. FINDINGS: Alignment of the total right knee arthroplasty is anatomic. There is no fracture. No unexp ected radiopaque foreign bodies. Skin joe are present. IMPRESSION: Expected findings following total right knee arthroplasty. ACT 112: Negative or not required by law. Electronically signed by: Augustin Rai M.D. 06/10/2023 11:35 AM
[2023-06-10] MEDS ORDERED: HYDROmorphone INJ 0.5 MG/0.5 ML SYR IV PRN (12:52)
[2023-06-10] MEDS ORDERED: bisacodyL 10 MG SUPP PR PRN (12:52)
[2023-06-10] MEDS ORDERED: SODIUM CHLORIDE 0.9% 1,000 ML IV SCH (12:52)
[2023-06-10] MEDS ORDERED: NALOXONE HCL 0.4 MG/1 ML VIAL/CARP IV PRN (12:52)
[2023-06-10] MEDS ORDERED: MAGNESIUM HYDROXIDE SUSP 30 ML UDC PO PRN (12:52)
[2023-06-10] MEDS ORDERED: oxyCODONE HCL IR 5 MG TAB (IMMEDIATE RELEASE) PO PRN (12:52)
[2023-06-10] MEDS ORDERED: METOCLOPRAMIDE HCL INJ 5 MG/ML 2 ML VIAL IV PRN (12:52)
--- NOTE | 2023-06-10 13:02 | Anesthesiology Progress Note ---
Date of Service June 10, 2023 Anesthesia Post Procedure Vital Signs Vital Signs: Temp Pulse Pulse Pulse Resp BP Pulse Ox 06/10/23 12:50 36.3 C L 69 18 123/70 95 06/10/23 12:40 36.4 C L 73 22 118/63 97 06/10/23 12:30 70 15 122/60 95 06/10/23 12:20 65 12 123/59 L 98 06/10/23 12:10 75 16 123/65 97 06/10/23 12:00 65 14 121/52 L 96 06/10/23 11:50 64 16 119/73 97 06/10/23 11:40 66 14 106/80 99 06/10/23 11:30 65 16 110/55 L 98 06/10/23 11:20 72 18 122/64 98 06/10/23 11:10 60 14 125/59 L 100 06/10/23 11:00 63 16 118/72 100 06/10/23 10:50 36.2 C L 61 16 115/56 L 98 06/10/23 07:45 36.5 C 74 20 133/75 98 O2 Del Method O2 Flow Rate 06/10/23 12:50 Room Air 06/10/23 12:40 Room Air 06/10/23 12:30 Room Air 06/10/23 12:20 Room Air 06/10/23 12:10 Room Air 06/10/23 12:00 Room Air 06/10/23 11:50 Room Air 06/10/23 11:40 Room Air 06/10/23 11:30 Room Air 06/10/23 11:20 Room Air 06/10/23 11:10 Room Air 06/10/23 11:00 Oxymask 06/10/23 10:50 Oxymask 06/10/23 07:45 Room Air Pain Intensity Right Knee: Pain Intensity: 0 Transfer of Care Handoff Completed per policy Notes Mental Status: alert / awake / arousable Patient Amnestic to Procedure: Yes Nausea / Vomiting: adequately controlled Pain: adequately controlled Airway Patency, RR, SpO2: stable & adequate BP & HR: stable & adequate Hydration State: stable & adequate Neuraxial Anesthesia: was administered and sensory block is resolving Anesthetic Complications: no major complications apparent and Pt Satisfied with anesthetic care
[2023-06-10] MEDS ORDERED: PANTOprazole 40 MG TAB PO PRN (13:12)
[2023-06-10] MEDS: ACETAMINOPHEN 500 MG TAB PO SCH ×2 (13:27→22:08)
[2023-06-10] MEDS: KETOROLAC TROMETHAMINE 15 MG/ML VIAL IV SCH ×2 (13:27→20:05)
[2023-06-10] MEDS: ceFAZolin 2000MG 2,000 MG/15 ML SYR IV SCH (16:56)
[2023-06-10] MEDS: DOCUSATE SODIUM 100 MG CAP PO SCH (20:06)
[2023-06-10] MEDS: ASPIRIN 81 MG ECTAB PO SCH (20:07)
[2023-06-10] MEDS ORDERED: SENNA 8.6 MG TAB PO SCH (21:00)
[2023-06-10] MEDS ORDERED: LOSARTAN POTASSIUM 25 MG TAB PO SCH (21:00)
[2023-06-11] MEDS: KETOROLAC TROMETHAMINE 15 MG/ML VIAL IV SCH ×2 (01:00→08:28)
[2023-06-11] MEDS: ceFAZolin 2000MG 2,000 MG/15 ML SYR IV SCH (01:00)
[2023-06-11] MEDS: ACETAMINOPHEN 500 MG TAB PO SCH (05:23)
--- NOTE | 2023-06-11 06:23 | Orthopedic Progress Note ---
Date of Service June 11, 2023 Assessment & Plan (1) Status post right knee replacement: Overall she is doing very well. She is not having much pain in the right knee. She will be seen by physical therapy today for ambulation and range of motion exercises. She is on aspirin for DVT prophylaxis. She can be discharged home later today. She will follow-up orthopedics in 2 weeks. Subjective Jacqui was seen and examined at bedside this morning. Overall she is doing very well. She is not having much pain in the right knee. She has been up and ambulating to the bathroom. She has no complaints.. Review of Systems All systems reviewed & are unremarkable except as noted in HPI & below. Physical Exam On physical examination of the right knee, the dressing is clean and dry. Her leg is out full extension. She has active dorsiflexion plantarflexion of the right ankle.. Results & Data Results & Data Laboratory Results . Diagnostic Findings Postoperative x-rays of the right knee show the prosthesis to be in anatomic alignment without any evidence of fracture, dislocation, or loosening.. PG Care Time/CCT Total # of Minutes Spent Total Time Spent with Patient: Total time spent is greater than 50% in coordination of care (as documented) at patient's floor/unit and/or counseling patient: Coding Level of Care Code 48723 Post Operative Follow-Up Diagnoses Status post right knee replacement Z96.651
--- NOTE | 2023-06-11 06:24 | Discharge Summary ---
Date of Service June 11, 2023 Principal Diagnosis Same as "Discharge Diagnosis" noted below under Discharge Instructions. Discharge Exam On physical examination of the right knee, the dressing is clean and dry. Her leg is out full extension. She has active dorsiflexion plantarflexion of the right ankle.. Discharge Data Procedures Performed Operation Date: 06/10/23 09:00 Actual Procedures p Right Total Knee Arthroplasty(Right) - Ru Medina DO Ordered Studies 06/10/23 05:00 US - OR guided needle placemen Routine Hospital Course (1) Status post right knee replacement: On June 10, 2023 Jacqui arrived at [facility] and underwent a right knee replacement without complication. She had a spinal anesthetic. Postoperatively she was started on aspirin for DVT prophylaxis and transferred to the general orthopedic floors. Her hospital course was uneventful. On postop day #1, her vital signs were stable and her pain was well controlled. She was able to participate well with physical therapy doing ambulation and range of motion exercises. She was then discharged home. She will follow-up orthopedics in 2 weeks. PG Care Time/CCT Total # of Minutes Spent Total Time Spent with Patient: Total time spent is greater than 50% in coordination of care (as documented) at patient's floor/unit and/or counseling patient: Discharge Plan Discharge Items Patient Disposition: Home - Home Health Services Reason For Visit: DJD Knee Right Discharge Diagnosis: Right knee replacement Activity: As commented below Non-emergency contact: Surgeon Call non-emergency contact if: your wound has increased redness and your wound has increased drainage Follow-up/Referrals: Usha Lopez PA-C [Primary Care Provider] - Diet: Regular Addtl Attending Provider Instructions: Activity and Therapy Recommendations: * If you are using [facility] then therapy will be provided at your home until they feel you have accomplished all of your goals. * If you are using [facility] then Physical Therapy will be provided until they feel you are ready to start Outpatient Physical Therapy. * If you are not using home therapy then Outpatient Physical Therapy should start about 3-5 days from your day of surgery. Therapy will last about 6-10 weeks * It is important not to put a pillow under your knee when you are relaxing or sleeping. It is just as important to make sure you are getting your knee perfectly straight as it is to regain your knee bend. * You were shown a series of exercises in the hospital. Do these exercises three times each day including the exercises you were shown in physical therapy. * Get up and walk several times each day. For the first four weeks, try not to stand or walk for more than one hour at a time. If you do stand or walk for more than one hour, you will not hurt anything, but your leg will likely swell. * As you feel comfortable, you may change from the walker or crutches to a cane and then to independent walking. Medications: * Narcotic You will likely be sent home from the hospital with a prescription for the narcotic pain medication that worked best throughout your stay. * Aspirin Most patients will be required to take Aspirin 81mg twice a day for 6 weeks after surgery. This is obtained [id number] and a prescription is not necessary. * Other medications may be prescribed for specific circumstances. If you have any questions, please call the office at . * Resume previous home medications unless otherwise instructed TEDs/Elastic Stockings: The white elastic stockings help limit swelling and prevent blood clots from forming in your legs.~ The more you wear them, the more they work. Wear them for six weeks. Dressing Care: The dressing can be changed after physical therapy on postop day #1. Daily dry dressing changes for a few days, especially if the incision is still draining some. If the incision is not draining then you may leave the joe open to air. If there is a little bit of drainage or if the joe are getting stuck on your clothing then cover the incision with a dry dressing. The joe will be removed at your 2 week follow-up appointment. Showering: You may shower 5 days from the day of surgery as long as the incision is no longer draining. You may shower with the oje exposed. Let soapy water run over the joe and pat them dry. Do not scrub or soak the incision. Things To Watch For: * Drainage from the incision site that occurs more than one week after your surgery. * Increased redness at the incision site. * Fever above 102 degrees Fahrenheit. * Unusual chest pain or shortness of breath. * Call [facility] at with any of the above problems Follow-Up Visit: Follow-up with Dr. Medina's PA (Ru Giraldo) 2-3 weeks after your day of surgery. He will remove your joe and answer any questions. If you have any additional questions or concerns, Dr Medina is usually in the office at the same time and will be available An appointment was probably scheduled when you signed-up for surgery in the office. If you have any questions call Office Instructions: More detailed instructions as well as Frequently Asked Questions were provided in a folder by our office when you signed-up for surgery. Please review these instructions when you get home. If you have any further questions or concerns, please feel free to call the office at [phone] Pending Studies at Discharge: No Stand-Alone Forms: My [facility] [employer], Smoking Cessation Medications and DC Order Prescriptions: New aspirin 81 mg Tablet,Delayed Release (Dr/Ec) 81 mg PO BID 42 Days Qty: 84 0RF tramadol 50 mg tablet 50 mg PO Q6H PRN (Reason: pain) Qty: 30 0RF Continued omeprazole magnesium [Prilosec OTC] 20 mg tablet,delayed release (DR/EC) 20 mg PO DAILY PRN (Reason: Acid Reflux) Qty: 90 3RF telmisartan 20 mg tablet 10 mg PO HS Qty: 45 3RF Admission Data Admit Date/Time: 06/10/23 10:51 Attending Provider: Ru Medina Admit Provider: uR Medina Primary Care Provider: Usha Lopez
[2023-06-11] MEDS ORDERED: dexAMETHasone 4 MG TAB PO SCH (08:00)
[2023-06-11] MEDS: ASPIRIN 81 MG ECTAB PO SCH (08:28)
[2023-06-11] MEDS: DOCUSATE SODIUM 100 MG CAP PO SCH (08:28)
[2023-06-11] MEDS ORDERED: MULTIVITAMIN TAB PO SCH (09:00)
== END 2023-06-11 12:38 | disposition hospice, home (50) ==
LOC: ASU 07:20 → 3E 07:20